=== PATIENT | female | born 2000 | race Caucasian/White ===

== ENCOUNTER 2022-09-06 21:55 | Emergency (ER) | payer MEDICAID, SELFPAY ==
[2022-09-06 22:09] VITALS: BP 157/103; PULSE 83; RESP 20; TEMP 37.1; O2SAT 97; BMI 36.8
--- NOTE | 2022-09-07 03:21 | PC.NURSE ---
pt checked in and then left shortly after. waiting room near empty. unknown reason for pt leaving.
== END 2022-09-07 03:24 | disposition left against medical advice (07) ==
PROVIDERS: Emergency Provider Emergency Medicine; PCP Hospitalist
DX: R51.9 Headache, unspecified (principal)
CPT/HCPCS: 99281